=== PATIENT | male | born 1960 | race Caucasian/White ===

== ENCOUNTER 2016-05-20 01:31 | Emergency (ER) | payer MEDICARE, OTHER ==
[~2016-05-20] VITALS: Ht 167.6 cm; Wt 81.5 kg
[~2016-05-20 01:31] MED LIST: BACL10TA PO; CRAN450T10 PO; DIVA500T52 PO; DSS100 PO; FAMO20 PO; FENT50PAT TD; GABA-531 PO; METH10 PO; METH5TAB2 PO; MULT-1203 PO; MULT-1239 PO; PANT40TA25 PO; QUET200T PO; QUET200T29 PO; SERT50TA12 PO
[2016-05-20 03:01] VITALS: BP 119/65
[2016-05-20] MEDS ORDERED: LORazepam 2 MG TABLET PO ONE (03:45)
== END 2016-05-20 05:27 | disposition home or self-care (01) ==
LOC: EMS 01:34
DX: F41.9 Anxiety disorder, unspecified (principal); F32.9 Major depressive disorder, single episode, unspecified; E03.9 Hypothyroidism, unspecified; F12.90 Cannabis use, unspecified, uncomplicated; Z88.0 Allergy status to penicillin
CPT/HCPCS: 99284

== ENCOUNTER 2016-06-07 20:57 | Inpatient (IN) | payer MEDICARE, OTHER ==
[~2016-06-07] VITALS: Ht 167.6 cm; Wt 87.3 kg
[2016-06-07] MEDS ORDERED: BALS60OI TP (21:18)
[2016-06-07] MEDS ORDERED: CLON.1 PO (21:18)
[2016-06-07] MEDS ORDERED: METO25 PO (21:18)
[2016-06-07] MEDS ORDERED: CefTRIAXone 1 GM/DEXTROSE 50 ML IV ONE (21:45)
[2016-06-07 21:59] LABS: ANION GAP 8 mmol/L (8-16); CALCIUM, TOTAL 9.2 mg/dL (8.8-10.5); CARBON DIOXIDE 31 mmol/L (22-29); CHLORIDE 99 mmol/L (98-107); CREATININE 0.84 mg/dL (0.60-1.30); GLOMERULAR FILTR. RATE CALC > 60 mL/min (>60); POTASSIUM 4.5 mmol/L (3.5-5.1); SODIUM SERUM 138 mmol/L (136-145); UREA NITROGEN, BLOOD 14 mg/dL (7-18)
[2016-06-07 22:06] LABS: ALANINE AMINOTRANSFERASE 44 U/L (12-78); ALBUMIN 3.1 g/dL (3.4-5.0); ASPARTATE AMINOTRANSFERASE 33 U/L (15-37); BILIRUBIN,TOTAL 0.3 mg/dL (0.1-1.0); TOTAL PROTEIN, SERUM 7.8 g/dL (6.4-8.2)
[2016-06-07 22:13] LABS: LACTIC ACID 1.8 mmol/L (0.4-2.0)
[2016-06-07 22:52] LABS: BASOPHILS # (AUTO) 0.02 K/uL (0.00-0.20); BASOPHILS % (AUTO) 0.1 % (0.0-2.0); EOSINOPHILS % (AUTO) 0 % (1.0-6.0); HEMATOCRIT 29.5 % (41-53); HEMOGLOBIN 9.6 g/dL (13.5-17.5); LYMPHOCYTES % (AUTO) 8.9 % (22.0-44.0); MEAN CORPUSCULAR HEMOGLOBIN 26.5 pg (26.0-34.0); MEAN CORPUSCULAR HGB CONC 32.5 G/dL (31.0-37.0); MEAN CORPUSCULAR VOLUME 82 fL (80-100); MONOCYTES # (AUTO) 0.5 K/uL (0.1-1.0); MONOCYTES % (AUTO) 4.5 % (2.0-9.0); PLATELET COUNT (AUTO) 216 K/uL (150-450); RED BLOOD CELL COUNT(AUTO) 3.62 MIL/uL (4.50-5.90); RED CELL DISTRIBUTION WIDTH 17.6 % (11.5-14.5); WHITE BLOOD COUNT (AUTO) 11.6 K/uL (4.5-11.0)
[2016-06-07 22:53] LABS: NEUTROPHILS % (AUTO) 86.5 % (40.0-70.0)
[2016-06-07 23:22] LABS: RBC MORPHOLOGY COMMENT ABNORMAL RBC MORPH
[2016-06-07 23:48] LABS: ADD UA MICROSCOPIC YES; APPEARANCE,URINE CLOUDY (CLEAR); GLUCOSE, URINE (UA) NEGATIVE (NEGATIVE); KETONES,URINE NEGATIVE (NEGATIVE); LEUKOCYTE ESTERASE ,URINE LARGE (NEGATIVE); OCCULT BLOOD,URINE TRACE (NEGATIVE); PROTEIN,URINE NEGATIVE (NEGATIVE)
[2016-06-08] VITALS (8 sets, daily range): BP systolic 90–112; BP diastolic 46–63
[2016-06-08 00:03] LABS: SQUAMOUS EPITHELIAL CELL,UR Rare /LPF (None Seen); WBC,URINE 26-50 /HPF (0-5)
[2016-06-08] MEDS ORDERED: MORPHINE SULFATE 4 MG/ML SYRINGE IVP ONE (00:30)
[2016-06-08] MEDS ORDERED: ACETAMINOPHEN 325 MG TABLET PO PRN (01:15)
[2016-06-08] MEDS ORDERED: MAGNESIUM HYDROXIDE SUSPENSION 30 ML UDCUP PO PRN (01:15)
[2016-06-08] MEDS ORDERED: ZOLPIDEM TARTRATE 5 MG TABLET PO PRN (01:15)
[2016-06-08] MEDS ORDERED: MORPHINE SULFATE 2 MG/ML SYRINGE IVP PRN (01:15)
[2016-06-08] MEDS ORDERED: IPRATROPIUM BROMIDE 0.5 MG/2.5 ML NEB SOLUTION NEB PRN (01:15)
[2016-06-08] MEDS ORDERED: ONDANSETRON HCL 4 MG/2 ML VIAL IVP PRN (01:15)
[2016-06-08] MEDS ORDERED: ALBUTEROL SULFATE 2.5 MG/0.5 ML NEB SOLUTION NEB PRN (01:15)
[2016-06-08] MEDS ORDERED: BISACODYL 10 MG RECTAL RECTAL SUPPOSITORY PR PRN (01:15)
[2016-06-08] MEDS ORDERED: ACET-784 PO (01:23)
[2016-06-08] MEDS ORDERED: MOM30 PO (01:23)
[2016-06-08] MEDS ORDERED: LORA0.5T2 PO (01:23)
[2016-06-08] MEDS ORDERED: GABA-531 PO ×2 (01:23)
[2016-06-08] MEDS ORDERED: ONDA4 PO (01:23)
[2016-06-08] MEDS ORDERED: BUDE0.5A3 NEB (01:23)
[2016-06-08] MEDS ORDERED: ASCO500 PO (01:23)
[2016-06-08] MEDS ORDERED: OXYC10TA93 PO (01:23)
[2016-06-08] MEDS ORDERED: IPRA3AMP4 NEB (01:23)
[2016-06-08] MEDS ORDERED: QUET300T2 PO (01:23)
[2016-06-08] MEDS: BACLOFEN 10 MG TABLET PO SCH ×5 (02:28→20:41)
[2016-06-08] MEDS: OxyCODONE HCL 10 MG IR TABLET PO SCH ×4 (02:28→19:03)
[2016-06-08] MEDS: LORazepam 0.5 MG TABLET PO SCH ×3 (02:28→17:55)
[2016-06-08] MEDS: PANTOPRAZOLE SODIUM 40 MG/VIAL IVP SCH (08:12)
[2016-06-08] MEDS: HEPARIN SODIUM,PORCINE 5,000 UNITS/ML VIAL SQ SCH ×3 (08:12→23:38)
[2016-06-08] MEDS: MULTIVITAMINS WITH MINERALS, THERAPEUTIC TABLET PO SCH (08:13)
[2016-06-08] MEDS: METOPROLOL TARTRATE 25 MG TABLET PO SCH ×2 (08:13→21:00)
[2016-06-08] MEDS: GABAPENTIN 300 MG CAPSULE PO SCH ×3 (08:13→20:41)
[2016-06-08] MEDS: ASCORBIC ACID 500 MG TABLET PO SCH ×2 (08:14→20:40)
[2016-06-08] MEDS: SERTRALINE HCL 50 MG TABLET PO SCH (08:14)
[2016-06-08] MEDS: BALSAM PERU/CASTOR OIL 60 GM OINTMENT TP SCH (08:15)
[2016-06-08] MEDS: HYDROCODONE/ACETAMINOPHEN 5-325 MG TABLET PO PRN ×2 (08:24→12:42)
[2016-06-08] MEDS: IPRATROPIUM BROMIDE 0.5 MG/2.5 ML NEB SOLUTION NEB SCH ×4 (09:00→20:47)
[2016-06-08] MEDS: DOCUSATE SODIUM 100 MG CAPSULE PO SCH ×2 (09:00→20:41)
[2016-06-08] MEDS ORDERED: FentaNYL 50 MCG/HOUR PATCH TD SCH (09:00)
[2016-06-08] MEDS ORDERED: MISC MED-CONVERTED FROM AMBULATORY (Ipratropium/Albuterol Sulfate (Duoneb 2.5-0.5 Mg/3 Ml NEB SCH (09:00)
[2016-06-08] MEDS: CloNIDine HCL 0.1 MG TABLET PO SCH (09:00)
[2016-06-08] MEDS ORDERED: DOCUSATE SODIUM 100 MG CAPSULE PO SCH (09:00)
[2016-06-08] MEDS: MAGNESIUM HYDROXIDE SUSPENSION 30 ML UDCUP PO SCH (09:00)
[2016-06-08] MEDS: ALBUTEROL SULFATE 2.5 MG/0.5 ML NEB SOLUTION NEB SCH ×4 (09:00→20:47)
[2016-06-08] MEDS: BUDESONIDE 0.5 MG/2 ML NEB SOLUTION NEB SCH ×2 (13:02→20:47)
[2016-06-08] MEDS: CefTRIAXone 1 GM/DEXTROSE 50 ML IV SCH (20:44)
[2016-06-08] MEDS ORDERED: SODIUM CHLORIDE 0.9% 500 ML IV ONE (20:48)
[2016-06-08] MEDS: QUEtiapine FUMARATE 300 MG TABLET PO SCH (22:15)
[2016-06-09] MEDS: OxyCODONE HCL 10 MG IR TABLET PO SCH ×4 (00:19→19:30)
[2016-06-09] MEDS: LORazepam 0.5 MG TABLET PO SCH ×3 (01:30→17:50)
[2016-06-09 06:48] VITALS: BP 99/60
[2016-06-09 07:15] VITALS: BP 100/59
[2016-06-09] MEDS: PANTOPRAZOLE SODIUM 40 MG/VIAL IVP SCH (07:42)
[2016-06-09 07:45] VITALS: BP 100/60
[2016-06-09] MEDS: BALSAM PERU/CASTOR OIL 60 GM OINTMENT TP SCH (07:49)
[2016-06-09] MEDS: IPRATROPIUM BROMIDE 0.5 MG/2.5 ML NEB SOLUTION NEB SCH ×4 (08:08→20:21)
[2016-06-09] MEDS: ALBUTEROL SULFATE 2.5 MG/0.5 ML NEB SOLUTION NEB SCH ×4 (08:08→20:22)
[2016-06-09] MEDS: BUDESONIDE 0.5 MG/2 ML NEB SOLUTION NEB SCH ×2 (08:08→20:22)
[2016-06-09] MEDS: DOCUSATE SODIUM 100 MG CAPSULE PO SCH ×2 (09:00→20:20)
[2016-06-09] MEDS: SERTRALINE HCL 50 MG TABLET PO SCH (09:00)
[2016-06-09] MEDS: CloNIDine HCL 0.1 MG TABLET PO SCH (09:00)
[2016-06-09] MEDS: MAGNESIUM HYDROXIDE SUSPENSION 30 ML UDCUP PO SCH (09:00)
[2016-06-09] MEDS: HEPARIN SODIUM,PORCINE 5,000 UNITS/ML VIAL SQ SCH ×2 (09:40→16:06)
[2016-06-09] MEDS: GABAPENTIN 300 MG CAPSULE PO SCH ×3 (09:41→20:15)
[2016-06-09] MEDS: METOPROLOL TARTRATE 25 MG TABLET PO SCH ×2 (09:41→20:17)
[2016-06-09] MEDS: BACLOFEN 10 MG TABLET PO SCH ×4 (09:41→20:13)
[2016-06-09] MEDS: ASCORBIC ACID 500 MG TABLET PO SCH ×2 (09:42→20:13)
[2016-06-09] MEDS: MULTIVITAMINS WITH MINERALS, THERAPEUTIC TABLET PO SCH (09:42)
[2016-06-09 11:30] VITALS: BP 98/58
[2016-06-09 12:11] LABS: BASOPHILS % (AUTO) 0.5 % (0.0-2.0); EOSINOPHILS % (AUTO) 3.9 % (1.0-6.0); HEMATOCRIT 33.8 % (41-53); HEMOGLOBIN 10.7 g/dL (13.5-17.5); LYMPHOCYTES # (AUTO) 1.5 K/uL (1.0-4.8); LYMPHOCYTES % (AUTO) 24.8 % (22.0-44.0); MEAN CORPUSCULAR HEMOGLOBIN 26.1 pg (26.0-34.0); MEAN CORPUSCULAR HGB CONC 31.7 G/dL (31.0-37.0); MEAN CORPUSCULAR VOLUME 82 fL (80-100); MONOCYTES # (AUTO) 0.4 K/uL (0.1-1.0); MONOCYTES % (AUTO) 7.2 % (2.0-9.0); NEUTROPHILS # (AUTO) 3.8 K/uL (1.8-7.7); NEUTROPHILS % (AUTO) 63.6 % (40.0-70.0); PLATELET COUNT (AUTO) 213 K/uL (150-450); WHITE BLOOD COUNT (AUTO) 5.9 K/uL (4.5-11.0)
[2016-06-09 12:20] LABS: ANION GAP 6 mmol/L (8-16); CALCIUM, TOTAL 8.6 mg/dL (8.8-10.5); CARBON DIOXIDE 31 mmol/L (22-29); CHLORIDE 104 mmol/L (98-107); CREATININE 0.68 mg/dL (0.60-1.30); GLOMERULAR FILTR. RATE CALC > 60 mL/min (>60); POTASSIUM 4.2 mmol/L (3.5-5.1); SODIUM SERUM 141 mmol/L (136-145); UREA NITROGEN, BLOOD 18 mg/dL (7-18)
[2016-06-09 12:26] LABS: ALANINE AMINOTRANSFERASE 54 U/L (12-78); ALBUMIN 2.9 g/dL (3.4-5.0); ASPARTATE AMINOTRANSFERASE 40 U/L (15-37); BILIRUBIN,TOTAL 0.2 mg/dL (0.1-1.0); TOTAL PROTEIN, SERUM 7.5 g/dL (6.4-8.2)
[2016-06-09 15:20] VITALS: BP 114/61
[2016-06-09 20:09] VITALS: BP 106/63
[2016-06-09] MEDS: QUEtiapine FUMARATE 300 MG TABLET PO SCH (20:13)
[2016-06-09] MEDS: CefTRIAXone 1 GM/DEXTROSE 50 ML IV SCH (20:17)
[2016-06-09] MEDS: HYDROCODONE/ACETAMINOPHEN 5-325 MG TABLET PO PRN (22:39)
[2016-06-10 00:58] VITALS: BP 136/58
[2016-06-10] MEDS: OxyCODONE HCL 10 MG IR TABLET PO SCH ×3 (01:05→13:40)
[2016-06-10] MEDS: HEPARIN SODIUM,PORCINE 5,000 UNITS/ML VIAL SQ SCH ×3 (01:06→16:00)
[2016-06-10] MEDS: LORazepam 0.5 MG TABLET PO SCH ×2 (01:07→09:17)
[2016-06-10 07:10] LABS: BASOPHILS # (AUTO) 0.02 K/uL (0.00-0.20); BASOPHILS % (AUTO) 0.4 % (0.0-2.0); EOSINOPHILS % (AUTO) 0 % (1.0-6.0); HEMATOCRIT 31.8 % (41-53); HEMOGLOBIN 10.4 g/dL (13.5-17.5); LYMPHOCYTES # (AUTO) 1.9 K/uL (1.0-4.8); LYMPHOCYTES % (AUTO) 29.3 % (22.0-44.0); MEAN CORPUSCULAR HEMOGLOBIN 26.8 pg (26.0-34.0); MEAN CORPUSCULAR HGB CONC 32.8 G/dL (31.0-37.0); MEAN CORPUSCULAR VOLUME 82 fL (80-100); MONOCYTES # (AUTO) 0.4 K/uL (0.1-1.0); MONOCYTES % (AUTO) 5.6 % (2.0-9.0); NEUTROPHILS # (AUTO) 4.1 K/uL (1.8-7.7); NEUTROPHILS % (AUTO) 64.7 % (40.0-70.0); PLATELET COUNT (AUTO) 229 K/uL (150-450); RED BLOOD CELL COUNT(AUTO) 3.89 MIL/uL (4.50-5.90); RED CELL DISTRIBUTION WIDTH 17.2 % (11.5-14.5); WHITE BLOOD COUNT (AUTO) 6.4 K/uL (4.5-11.0)
[2016-06-10 07:33] VITALS: BP 92/55
[2016-06-10] MEDS ORDERED: SODIUM CHLORIDE 0.9% 250 ML IV ONE (07:47)
[2016-06-10 08:08] LABS: ALANINE AMINOTRANSFERASE 42 U/L (12-78); ALBUMIN 2.7 g/dL (3.4-5.0); ANION GAP 8 mmol/L (8-16); ASPARTATE AMINOTRANSFERASE 29 U/L (15-37); BILIRUBIN,TOTAL 0.2 mg/dL (0.1-1.0); CALCIUM, TOTAL 8.6 mg/dL (8.8-10.5); CARBON DIOXIDE 29 mmol/L (22-29); CHLORIDE 104 mmol/L (98-107); CREATININE 0.57 mg/dL (0.60-1.30); GLOMERULAR FILTR. RATE CALC > 60 mL/min (>60); POTASSIUM 4.2 mmol/L (3.5-5.1); SODIUM SERUM 141 mmol/L (136-145); TOTAL PROTEIN, SERUM 7.1 g/dL (6.4-8.2); UREA NITROGEN, BLOOD 16 mg/dL (7-18)
[2016-06-10] MEDS: IPRATROPIUM BROMIDE 0.5 MG/2.5 ML NEB SOLUTION NEB SCH ×3 (08:21→16:00)
[2016-06-10] MEDS: BUDESONIDE 0.5 MG/2 ML NEB SOLUTION NEB SCH (08:21)
[2016-06-10] MEDS: ALBUTEROL SULFATE 2.5 MG/0.5 ML NEB SOLUTION NEB SCH ×3 (08:21→16:00)
[2016-06-10] MEDS: CloNIDine HCL 0.1 MG TABLET PO SCH (09:00)
[2016-06-10] MEDS: MAGNESIUM HYDROXIDE SUSPENSION 30 ML UDCUP PO SCH (09:00)
[2016-06-10] MEDS: METOPROLOL TARTRATE 25 MG TABLET PO SCH (09:00)
[2016-06-10] MEDS: PANTOPRAZOLE SODIUM 40 MG/VIAL IVP SCH (09:15)
[2016-06-10] MEDS: BACLOFEN 10 MG TABLET PO SCH ×3 (09:16→16:00)
[2016-06-10] MEDS: MULTIVITAMINS WITH MINERALS, THERAPEUTIC TABLET PO SCH (09:16)
[2016-06-10] MEDS: ASCORBIC ACID 500 MG TABLET PO SCH (09:16)
[2016-06-10] MEDS: SERTRALINE HCL 50 MG TABLET PO SCH (09:16)
[2016-06-10] MEDS: DOCUSATE SODIUM 100 MG CAPSULE PO SCH (09:16)
[2016-06-10] MEDS: GABAPENTIN 300 MG CAPSULE PO SCH (09:17)
[2016-06-10] MEDS: BALSAM PERU/CASTOR OIL 60 GM OINTMENT TP SCH (09:18)
[2016-06-10 12:13] VITALS: BP 92/53
[2016-06-10 15:15] VITALS: BP 111/54
[2016-06-10] MEDS ORDERED: CIPROFLOXACIN HCL 500 MG TABLET PO SCH (21:00)
== END 2016-06-10 18:15 | DRG 689 ==
LOC: EMS 21:00 → 6N 22:41
PROVIDERS: ADMIT Hospitalist; ATTEND Hospitalist
DX: N39.0 Urinary tract infection, site not specified (principal); G82.50 Quadriplegia, unspecified; E44.0 Moderate protein-calorie malnutrition; N31.9 Neuromuscular dysfunction of bladder, unspecified; G89.4 Chronic pain syndrome; F20.9 Schizophrenia, unspecified; L89.159 Pressure ulcer of sacral region, unspecified stage; E03.9 Hypothyroidism, unspecified; E78.5 Hyperlipidemia, unspecified; G40.909 Epilepsy, unspecified, not intractable, without status epilepticus; N40.0 Benign prostatic hyperplasia without lower urinary tract symptoms; Z86.19 Personal history of other infectious and parasitic diseases; Z88.0 Allergy status to penicillin; Z79.52 Long term (current) use of systemic steroids; Z98.890 Other specified postprocedural states; Z68.31 Body mass index [BMI] 31.0-31.9, adult
CPT/HCPCS: 83605; 87040; 87081; 87086; 94640; 96365; 96366; 96375; 99285; C9113; J0696; J1644; J2270; J7040; J7050